=== PATIENT | female | born 1945 | race Caucasian/White ===

== ENCOUNTER 2017-08-13 04:53 | Inpatient (IN) | payer OTHER ==
[2017-08-01 15:01] VITALS: BMI 38.0
--- NOTE | 2017-08-01 15:46 | PAT Medication Instructions ---
Service Date Aug 01, 2017. Current Home Medication List Amitriptyline Hcl (Elavil), 50 MG PO HS Ampicillin (Ampicillin), 2,000 MG PO UD Calcium Carbonate-Cholecalcife (Caltrate 600+D), 1 TAB PO BID Cholecalciferol (Vitamin D3), 1 CAP PO QAM Cyanocobalamin (Vitamin B12 500MCG), 500 MCG PO QAM Esomeprazole Magnesium (Nexium), 40 MG PO QAM Estradiol (Estradiol Transdermal System), 1 PATCH TD WK Misc Natural Products (Turmeric Curcumin), 3,200 MG PO BID Multiple Vitamins W/ Minerals (Ocuvite Adult 50+), 1 TAB PO QAM Naproxen (Aleve), 440 MG PO QAM [Equate Pm], 1,000 MG PO HS [Olmighty 40H], 12.5 MG PO QAM [Prednisone], 0.05 MG PO QAM [Selenium], 400 MG PO QAM Medication Instructions For Your Scheduled Surgery - Continue as directed; avoid surgical site: Estradiol (Estradiol Transdermal System), 1 PATCH TD WK - Hold the following medications 2 weeks prior to surgery: [Selenium], 400 MG PO QAM Misc Natural Products (Turmeric Curcumin), 3,200 MG PO BID - Hold the following medications 7 days prior to surgery per surgeon instructions: Naproxen (Aleve), 440 MG PO QAM - Hold the following medications the morning of surgery: Calcium Carbonate-Cholecalcife (Caltrate 600+D), 1 TAB PO BID Cholecalciferol (Vitamin D3), 1 CAP PO QAM Cyanocobalamin (Vitamin B12 500MCG), 500 MCG PO QAM Multiple Vitamins W/ Minerals (Ocuvite Adult 50+), 1 TAB PO QAM [Olmighty 40H], 12.5 MG PO QAM - Take the following medications the morning of surgery with a sip of water OTHERWISE NOTHING TO EAT OR DRINK AFTER MIDNIGHT: Esomeprazole Magnesium (Nexium), 40 MG PO QAM Tylenol (may take if needed up to 4 hours prior to surgery) [Prednisone], 0.05 MG PO QAM - Take the following medications as scheduled the night before surgery: Amitriptyline Hcl (Elavil), 50 MG PO HS Calcium Carbonate-Cholecalcife (Caltrate 600+D), 1 TAB PO BID Tylenol [Equate Pm], 1,000 MG PO HS If you have any questions please call us at [phone] or [phone] or [phone]
[2017-08-01 16:26] LABS: BASO % 1.1 %; BASO ABS # 0.06 K/uL (0-0.2); EOS % 0.9 %; EOS ABS # 0.05 K/uL (0-0.5); HEMATOCRIT 39.2 % (37-47); IG# 0.02 K/uL (0.00-0.02); LYMPH % 23.2 %; LYMPH ABS # 1.27 K/uL (1.2-3.4); MEAN CELL VOLUME 95.4 fL (80-100); MEAN CORPUSCULAR HEMOGLOBIN 31.6 pg (25-34); MEAN CORPUSCULAR HGB CONC 33.2 g/dl (32-36); MEAN PLATELET VOLUME 9.9 fL (7.4-10.4); MONO % 7.1 %; MONO ABS # 0.39 K/uL (0.11-0.59); NEUT % 67.3 %; NEUT ABS # 3.69 K/uL (1.4-6.5); PLATELET COUNT 362 K/uL (130-400); RED CELL DISTRIBUTION WIDTH CV 13.8 % (11.5-14.5); RED CELL DISTRIBUTION WIDTH SD 47.8 fL (36.4-46.3); WHITE BLOOD COUNT 5.48 K/uL (4.8-10.8)
[2017-08-01 16:38] LABS: ALBUMIN 4.3 gm/dl (3.4-5.0); CALCIUM 9.4 mg/dl (8.5-10.1); CREATININE 0.7 mg/dl (0.60-1.20); POTASSIUM 4.6 mmol/L (3.5-5.1)
[2017-08-01 16:42] LABS: PTT PATIENT 27.8 SECONDS (21.0-31.0)
--- NOTE | 2017-08-01 17:00 | DIAGNOSTIC IMAGING REPORT ---
CHEST PREADMISSION(PA/LAT) HISTORY: 72 years-old Female PAT preoperative exam. No acute chest complaints. COMPARISON: None available TECHNIQUE: Frontal and lateral views of the chest FINDINGS: Cardiomediastinal and hilar silhouettes are within normal limits. Left subclavian pacer device is noted with leads overlying the right atrium and right ventricle region. Atherosclerosis of the aorta. Lungs are mildly hyperinflated. There is no pneumothorax, pleural effusion, focal airspace consolidation or overt pulmonary edema. Haziness within the region of the lingula about the frontal and lateral views is thought to be secondary to composite density artifact from overlying soft tissue. There may also be some subsegmental atelectasis or scarring within left lung base. The bones are grossly intact. Degenerative changes are seen about the spine and shoulders. IMPRESSION: Subsegmental atelectasis or scarring of the left lung base without acute cardiopulmonary process. The above report was generated using voice recognition software. It may contain grammatical, syntax or spelling errors. Electronically signed by: Vernon Levy M.D. 08/01/2017 4:59 PM Dictated Date/Time: 08/01/2017 4:58 PM
[2017-08-02 06:25] LABS: HEMOGLOBIN A1C 5.8 % (4.5-5.6)
--- NOTE | 2017-08-02 15:08 | HISTORY & PHYSICAL EXAMINATION ---
DATE OF ADMISSION: 08/02/2017 CHIEF COMPLAINT: Right hip pain. HISTORY OF PRESENT ILLNESS: Ms. Metz is a 72-year-old female with a 2-year history of right hip pain. The patient rates her pain a 10/10. She has pain with her daily activities. She has limited standing and walking tolerance. Pain is worse with weightbearing. The patient uses a cane to ambulate. She has failed conservative treatment and is scheduled for right hip replacement. PAST MEDICAL HISTORY: Hypertension. She denies heart disease, diabetes or DVT. PAST SURGICAL HISTORY: Pacemaker, hysterectomy, multiple hernia repair, bilateral knee arthroscopy, tonsillectomy and tubal ligation. SOCIAL HISTORY: The patient denies alcohol or tobacco use. She quit smoking in 2006. She lives in a 2-story home. She is and retired. FAMILY HISTORY: Negative for DVT. MEDICATIONS: Caltrate 600 mg plus D, selenium 400 mg daily, vitamin D3 2000 units daily, Aleve p.r.n., Ocuvite, turmeric 500 mg, vitamin B12, prednisone 0.05 mg, estradiol 0.05 mg, omeprazole 40 mg, amitriptyline 50 mg. ALLERGIES: CODEINE CAUSES ITCHING. REVIEW OF SYSTEMS: See HPI. Ten other systems reviewed, all negative. PHYSICAL EXAMINATION: VITAL SIGNS: Height 5 feet 3 inches, weight 220 pounds, BMI is 39. GENERAL: This is a well-developed, well-nourished female who is alert and oriented x3. Mood and affect are appropriate. HEENT: Normocephalic. Mucous membranes are moist and intact. NECK: Supple without lymphadenopathy. HEART: Regular rate and rhythm without murmurs, rubs or gallops. ABDOMEN: Soft and nontender. Bowel sounds are equal and active. EXTREMITIES: No ecchymosis, redness or warmth. Thigh and calf are soft and nontender. Range of motion of the right hip is decreased and reproduces pain in the groin. She is neurovascularly intact with +5/5 strength. X-RAY EXAMINATION: AP and lateral views show joint space narrowing and osteophyte formation of the right hip. PLAN: The patient will be admitted for a right total hip arthroplasty with Dr. Abraham. We will plan on aspirin for DVT prophylaxis. The patient is ongoing use Advantage from physical therapy.
[~2017-08-13] VITALS: Ht 160 cm; Wt 99.8 kg
[2017-08-13] VITALS (10 sets, daily range): BP systolic 122–169; BP diastolic 71–89; PULSE 72–90; TEMP 36.4–36.8; O2SAT 94–99; Ht 160 cm; Wt 99.8 kg
[~2017-08-13 04:53] MED LIST: AMOX500T3 PO; AMT50 PO; CALC-354 PO; CHOL2000 PO; CYAN500T13 PO; DIPH-437 PO; ESTR0.0510 TD; MISCCAP52 PO; MULTCAP94 PO; NAPR1TAB9 PO; NXM/40 PO; PRD/1 PO; SELE200T23 PO; [UNRECOGNIZED DRUG - OTHER] PO
[2017-08-13] MEDS ORDERED: CEFAZOLIN 2000MG IV PUSH 10 ML IV SCH (06:00)
[2017-08-13] MEDS ORDERED: LACTATED RINGER'S 1000ML 1,000 ML IV SCH (06:00)
[2017-08-13] MEDS ORDERED: ROPIVACAINE 5MG/ML 30 ML 150 MG, BUPIVACAINE 0.5% MPF INJ 30 ML, EpINEphrine HCL INJ 0.... INFIL SCH ×8 (06:00)
[2017-08-13] MEDS ORDERED: FAMOTIDINE 20 MG TAB PO SCH (06:00)
[2017-08-13] MEDS ORDERED: DEXAMETHASONE 4 MG TAB PO SCH (06:00)
[2017-08-13] MEDS ORDERED: ACETAMINOPHEN 500 MG TAB PO SCH (06:00)
[2017-08-13] MEDS ORDERED: CeleBREX 200 MG CAP PO SCH (06:00)
[2017-08-13] MEDS ORDERED: METOCLOPRAMIDE HCL 10 MG TAB PO SCH (06:00)
[2017-08-13] MEDS: TRANEXAMIC ACID INJ 1,000 MG in SYRINGE 0 ML IV SCH ×2 (06:00→06:30)
[2017-08-13] MEDS ORDERED: GABAPENTIN 300 MG CAP PO SCH (06:00)
[2017-08-13] MEDS ORDERED: LACTATED RINGER'S 1000ML 500 ML IV ONE (06:00)
[2017-08-13] MEDS ORDERED: LACTATED RINGER'S 1000ML IV SCH (06:00)
[2017-08-13] MEDS ORDERED: PRED-301 PO (06:03)
[2017-08-13] MEDS ORDERED: POVIDONE-IODINE OP SOLN 30 ML BTL ONE (06:37)
[2017-08-13] MEDS ORDERED: ORTHO JOINT ANESTHETIC ONE (06:37)
[2017-08-13] MEDS ORDERED: BACITRACIN 50000 UNIT VIAL ONE (06:37)
[2017-08-13] MEDS ORDERED: BUPIVACAINE 0.5 % 5 MG/1 ML PF 10ML VIAL ONE (06:39)
[2017-08-13] MEDS ORDERED: FENTANYL CITRATE INJ 50 MCG/1 ML 2 ML VIAL ONE (06:43)
[2017-08-13] MEDS ORDERED: MIDAZOLAM HCL 1 MG/ML 2ML VIAL ONE ×2 (06:43→07:05)
[2017-08-13] MEDS ORDERED: FENTANYL CITRATE INJ 50 MCG/1 ML 2 ML VIAL IV PRN (06:45)
[2017-08-13] MEDS ORDERED: EpHEDrine SULFATE INJ 50 MG/ML AMP IV PRN (06:45)
[2017-08-13] MEDS ORDERED: ONDANSETRON INJ 2 MG/ML 2 ML VIAL IV PRN ×2 (06:45→08:30)
[2017-08-13] MEDS ORDERED: ATROPINE SULFATE 0.1 MG/ML 5ML SYR IV PRN (06:45)
--- NOTE | 2017-08-13 07:00 | History & Physical Bridge Note ---
H&P Re-Evaluation Bridge Note: I have examined the patient, reviewed the History & Physical and in the interval since the performance of the History & Physical I have noted the following changes of clinical significance: No changes noted
[2017-08-13] MEDS ORDERED: PROPOFOL IV EMULSION 10 MG/ML 20 ML VIAL IV ONE ×2 (07:37→09:42)
--- NOTE | 2017-08-13 07:55 | [facility] Post Operative Brief Note ---
Immediate Operative Summary Operative Date Aug 13, 2017. Pre-Operative Diagnosis Degenerative Joint Disease Right Hip Post-Operative Diagnosis Degenerative Joint Disease Right Hip Procedure(s) Performed Right Total Hip Arthroplasty--Uncemented Surgeon Dr. Abraham Air Conditioning Installer Surgeon(s) RAQUEL Soliman Estimated Blood Loss 100 ml Findings severe OA Specimens A. Right Femoral Head Disposition Recovery Room / PACU
[2017-08-13] MEDS ORDERED: MAGNESIUM HYDROXIDE SUSP 30 ML UDC PO PRN (08:30)
[2017-08-13] MEDS ORDERED: ALUMINUM/MAGNESIUM/SIMETH (MAALOX MAX) 30 ML UDC PO PRN (08:30)
[2017-08-13] MEDS ORDERED: ZOLPIDEM TARTRATE 5 MG TAB PO PRN (08:30)
[2017-08-13] MEDS ORDERED: MoRPHine SULFATE 2 MG/ML CARP IV PRN (08:30)
[2017-08-13] MEDS ORDERED: METOCLOPRAMIDE HCL INJ 5 MG/ML 2 ML VIAL IV PRN (08:30)
[2017-08-13] MEDS ORDERED: OXYCODONE HCL IR 5 MG TAB (IMMEDIATE RELEASE) PO PRN (08:30)
--- NOTE | 2017-08-13 08:30 | OPERATIVE REPORT ---
DATE OF OPERATION: 08/13/2017 PREOPERATIVE DIAGNOSIS: Osteoarthritis, right hip. POSTOPERATIVE DIAGNOSIS: Osteoarthritis, right hip. PROCEDURE: Right connective total hip arthroplasty. SURGEON: Dr. Abraham. BUSINESS DEVELOPMENT RECRUITER: Facundo Romo PA-C. ANESTHESIa spinhal COMPLICATIONS: None. OPERATION AND FINDINGS: PROCEDURE: Following induction of adequate spinal anesthesia, the patient was placed in left lateral decubitus position and right Juan Alberto-Langenbeck incision was made. Subcutaneous tissue was sharply dissected. Electrocautery used for hemostasis. The fascia was incised throughout the length of the wound and a rascon scissor placed beneath the short external rotators. The pyriformis was tagged with #1 Vicryl. The short external rotators were divided from the posterior aspect of the femur using electrocautery. These were swept posteriorly. A T-capsulotomy incision was made and the hip was dislocated using a combination of flexion, adduction, and internal rotation. Exposure of the femoral neck with old-style Hohmann and a blunt Hohmann was carried out and a femoral rasp was utilized as a guide for making the appropriate level femoral neck cut. This bone fragment was removed and reserved on the back table. Next, attention was turned to the acetabulum where bone hook was used to retract the femur while the offset retractors were placed anterior and posteriorly. A double-angled Hohmann was placed in superior and anterior position exposing the acetabulum nicely. Acetabular labrum as well as posterior capsule elements were removed using a long knife and a long pickup. Fovea centralis was cleared of all soft tissue. Sequential reamings were carried up to a 54 and decision was made to proceed with impaction of a 54 trabecular metal cup. This was impacted and held using a single 35 mm bone screw. The acetabular liner was placed with 15 of elevated posterior wall in the superior and posterior position. Next, attention was turned to the femoral portion of the case where a Bovie and pickup was used to further clear short external rotators from their insertion on the femur. Box osteotome was used to gain access to the femoral canal and the T-handled rasp and a rattail rasp were used to further open and lateral the canal. Sequentially raspings were carried up to a 4 which gave good fit and fill of the proximal femur. A trial reduction was carried out and reduced offset femoral neck component was chosen as the size to be used. A -2.5 x 36 mm ceramic femoral head was impacted into position, +0 head was utilized. The trial reduction was stable in all degrees of rotation with no [id number] impingement. The hip was dislocated. The trial components were removed and the final femoral stem, neck, and femoral head combination were assembled on the back table and impacted into position. Hip was relocated. Range of motion checked once again successful and the wound was irrigated. The pyriformis repaired to the greater trochanter using #1 Vicryl [id number] suture. A Hemovac drain was placed and the fascia was closed using #1 Vicryl, subcutaneous tissue was closed using 0 Dexon, and skin was closed with silvia. Sterile dressing of Adaptic, 4 x 4's, ABDs, and foam tape was applied. The patient tolerated the procedure well. Due to the complex nature of the procedure, the entire surgery was performed with the operational assistance of Facundo Romo PA-C. The endodontic assistant, under direct supervision, was involved in the actual performance of all aspects of the surgical procedure including hemostasis, tissue retraction and incision, instrument management, patient positioning, and wound closure. DISPOSITION: Recovery room, stable. I attest to the content of the Intraoperative Record and any orders documented therein. Any exceptions are noted below. BC
--- NOTE | 2017-08-13 09:14 | DIAGNOSTIC IMAGING REPORT ---
R PELVIS/UNILATERAL HIP 1 VIEW CLINICAL HISTORY: 72 years-old Female presenting with IN PACU - A/P PELVIS and LATERAL HIP INCLUDING ALL OF IMPLANT. TECHNIQUE: Single frontal view the pelvis was obtained. COMPARISON: None. FINDINGS: Total right hip arthroplasty in place. No hardware competition. No fracture. Intra-articular gas and surgical drain in place, expected postoperative appearance. Remaining osseous pelvis within normal limits. IMPRESSION: Expected postsurgical appearance status post total right hip arthroplasty. Electronically signed by: Sevne Estrella M.D. 08/13/2017 9:13 AM Dictated Date/Time: 08/13/2017 9:09 AM
[2017-08-13] MEDS ORDERED: EpHEDrine SULFATE 50MG/5ML SYR ONE (09:42)
[2017-08-13] MEDS ORDERED: PHENYLEPHRINE 100MCG/ML 5ML SYR ONE (09:42)
--- NOTE | 2017-08-13 09:47 | Anesthesiology Progress Note ---
Anesthesia Post Op Note Date & Time Aug 13, 2017 at 09:47 Vital Signs Pain Intensity: 0 Vital Signs Past 12 Hours Date Time Temp Pulse Resp B/P (MAP) Pulse Ox O2 Delivery O2 Flow Rate FiO2 08/13/17 09:43 73 24 96 08/13/17 09:43 72 24 08/13/17 09:41 36.3 73 22 134/68 (84) 96 Nasal Cannula 2 08/13/17 09:41 134/68 08/13/17 09:38 69 14 08/13/17 09:38 69 14 96 08/13/17 09:36 123/68 08/13/17 09:33 69 14 08/13/17 09:33 68 14 97 08/13/17 09:30 121/67 08/13/17 09:28 68 15 97 08/13/17 09:28 68 15 08/13/17 09:27 68 20 08/13/17 09:27 69 20 95 08/13/17 09:26 123/65 08/13/17 09:22 69 15 97 08/13/17 09:22 71 15 08/13/17 09:21 133/76 08/13/17 09:17 69 15 08/13/17 09:17 69 15 97 08/13/17 09:16 127/70 08/13/17 09:12 69 15 99 08/13/17 09:12 68 15 08/13/17 09:11 131/74 08/13/17 09:07 66 17 97 08/13/17 09:07 66 17 08/13/17 09:06 125/75 08/13/17 09:02 66 20 97 08/13/17 09:02 66 20 08/13/17 09:01 124/62 08/13/17 08:57 65 16 98 08/13/17 08:57 64 16 08/13/17 08:56 121/71 08/13/17 08:52 66 20 08/13/17 08:52 65 20 100 08/13/17 08:51 132/67 08/13/17 08:50 66 17 08/13/17 08:50 65 17 100 08/13/17 08:46 129/88 08/13/17 08:45 68 16 99 08/13/17 08:45 68 16 08/13/17 08:41 119/68 08/13/17 08:40 73 18 08/13/17 08:40 72 18 95 08/13/17 08:35 74 19 08/13/17 08:35 73 19 115/53 99 08/13/17 08:35 36.3 75 12 115/53 96 Mask 10 08/13/17 05:43 36.8 87 18 169/89 96 Room Air Notes Mental Status: alert / awake / arousable, participated in evaluation Pt Amnestic to Procedure: Yes Nausea / Vomiting: adequately controlled Pain: adequately controlled Airway Patency, RR, SpO2: stable & adequate BP & HR: stable & adequate Hydration State: stable & adequate Neuraxial Anesthesia: was administered, sensory block is resolving Anesthetic Complications: no major complications apparent
[2017-08-13] MEDS ORDERED: HYDROmorphone INJ 0.5 MG/0.5 ML SYR IV PRN (11:15)
[2017-08-13] MEDS: FERROUS GLUCONATE 324 MG TAB PO SCH ×2 (12:32→17:43)
[2017-08-13] MEDS: CYANOCOBALAMIN 500 MCG TAB (VIT B-12) PO SCH (12:32)
[2017-08-13] MEDS: KETOROLAC TROMETHAMINE 15 MG/ML VIAL IV. SCH ×3 (12:34→23:59)
[2017-08-13] MEDS: CEFAZOLIN IV 2,000 MG in SYRINGE 0 ML IV SCH ×2 (14:40→21:43)
[2017-08-13] MEDS: ACETAMINOPHEN 500 MG TAB PO SCH ×2 (14:41→21:43)
[2017-08-13] MEDS: HYDROmorphone INJ 1 MG/ML SYR IV PRN ×2 (15:37→20:00)
--- NOTE | 2017-08-13 18:50 | NUR ---
ID: PT A&Ox4, all vitals WNL on room air. Pain was a 7/10 and PRN Dilaudid was given. Pt pivoted to the bedside commode with 2 assist and a walker. Tolerated a regular diet. LR infusing in the left hand. Prevena wound vac and a hemovac patent in the right hip.
[2017-08-13] MEDS: D5W AND 1/2NSS + 20MEQ KCL 1,000 ML IV SCH (20:48)
[2017-08-13] MEDS: ASPIRIN 81 MG ECTAB PO SCH (20:48)
[2017-08-13] MEDS: DOCUSATE SODIUM 100 MG CAP PO SCH (20:48)
[2017-08-13] MEDS: AMITRIPTYLINE HCL 50 MG TAB PO SCH (20:48)
[2017-08-14 03:04] VITALS: BP 110/65; PULSE 73; TEMP 36.5; O2SAT 96
[2017-08-14] MEDS: HYDROmorphone INJ 1 MG/ML SYR IV PRN ×4 (03:05→19:40)
[2017-08-14] MEDS: ACETAMINOPHEN 500 MG TAB PO SCH ×3 (05:47→20:59)
[2017-08-14] MEDS: KETOROLAC TROMETHAMINE 15 MG/ML VIAL IV. SCH (05:48)
[2017-08-14] MEDS: D5W AND 1/2NSS + 20MEQ KCL 1,000 ML IV SCH (05:48)
[2017-08-14 06:57] LABS: BASO % 0.5 %; BASO ABS # 0.02 K/uL (0-0.2); EOS % 1.3 %; EOS ABS # 0.05 K/uL (0-0.5); HEMATOCRIT 31.5 % (37-47); HEMOGLOBIN 10.2 g/dL (12.0-16.0); LYMPH ABS # 1.47 K/uL (1.2-3.4); MEAN CELL VOLUME 96.3 fL (80-100); MEAN CORPUSCULAR HEMOGLOBIN 31.2 pg (25-34); MEAN CORPUSCULAR HGB CONC 32.4 g/dl (32-36); MEAN PLATELET VOLUME 9.8 fL (7.4-10.4); MONO % 22.3 %; MONO ABS # 0.84 K/uL (0.11-0.59); NEUT % 36.9 %; NEUT ABS # 1.39 K/uL (1.4-6.5); PLATELET COUNT 277 K/uL (130-400); RED CELL DISTRIBUTION WIDTH CV 13.8 % (11.5-14.5); RED CELL DISTRIBUTION WIDTH SD 48.7 fL (36.4-46.3); WHITE BLOOD COUNT 3.77 K/uL (4.8-10.8)
[2017-08-14 07:29] LABS: CALCIUM 8.5 mg/dl (8.5-10.1); CREATININE 0.66 mg/dl (0.60-1.20); POTASSIUM 4.5 mmol/L (3.5-5.1)
[2017-08-14] MEDS ORDERED: DEXAMETHASONE INJ 10 MG in SYRINGE 0 ML IV ONE (07:30)
[2017-08-14] MEDS: OLMESARTAN MEDOXOMIL 40 MG TAB PO SCH (07:33)
[2017-08-14] MEDS: HYDROCHLOROTHIAZIDE 25 MG TAB PO SCH (07:33)
[2017-08-14] MEDS: CYANOCOBALAMIN 500 MCG TAB (VIT B-12) PO SCH (07:33)
[2017-08-14] MEDS: FERROUS GLUCONATE 324 MG TAB PO SCH ×3 (07:33→17:42)
[2017-08-14] MEDS: DOCUSATE SODIUM 100 MG CAP PO SCH ×2 (07:33→20:57)
[2017-08-14] MEDS: PANTOprazole SOD 40 MG TAB PO SCH (07:33)
[2017-08-14] MEDS: ASPIRIN 81 MG ECTAB PO SCH ×2 (07:33→20:58)
[2017-08-14] MEDS: MULTIVITAMIN TAB PO SCH (07:34)
[2017-08-14 07:49] VITALS: BP 134/84; PULSE 84; TEMP 36.6; O2SAT 93
--- NOTE | 2017-08-14 10:51 | Orthopedic Progress Note ---
Orthopedic Progress Note Date of Service Aug 14, 2017. Subjective Post OP Day: 1 Reports: feeling well, Denies: chest pain, SOB, nausea / vomiting, light headedness, calf pain Objective calves soft nontender, N/V intact (+FOOT DROP), hip located, capillary refill less than 2 sec., dressing C/D/I (PREVENA), A&O x3, toes mobile, hemovac drainage (225/75CC PER SHIFT) Date Time Temp Pulse Resp B/P (MAP) Pulse Ox O2 Delivery O2 Flow Rate FiO2 08/14/17 07:49 36.6 84 16 134/84 (101) 93 Room Air 08/14/17 07:45 Room Air 08/14/17 03:04 36.5 73 16 110/65 (80) 96 Room Air 08/14/17 00:10 Room Air 08/13/17 22:48 36.6 90 19 126/71 (89) 94 Room Air 08/13/17 18:47 36.7 90 18 122/74 (90) 95 Room Air 08/13/17 15:30 Room Air 08/13/17 14:59 36.6 72 18 139/79 (99) 95 Nasal Cannula 2.0 08/13/17 13:11 36.7 82 22 138/77 (97) 97 Nasal Cannula 2.0 08/13/17 12:00 75 16 130/76 (94) 97 Nasal Cannula 2.0 08/13/17 11:24 99 Nasal Cannula 2.0 08/13/17 11:20 36.4 77 24 138/76 (96) 99 Nasal Cannula 2.0 Laboratory Results 24 Hours: Test 08/14/17 06:27 White Blood Count 3.77 K/uL Red Blood Count 3.27 M/uL Hemoglobin 10.2 g/dL Hematocrit 31.5 % Mean Corpuscular Volume 96.3 fL Mean Corpuscular Hemoglobin 31.2 pg Mean Corpuscular Hemoglobin Concent 32.4 g/dl Platelet Count 277 K/uL Mean Platelet Volume 9.8 fL Neutrophils (%) (Auto) 36.9 % Lymphocytes (%) (Auto) 39.0 % Monocytes (%) (Auto) 22.3 % Eosinophils (%) (Auto) 1.3 % Basophils (%) (Auto) 0.5 % Neutrophils # (Auto) 1.39 K/uL Lymphocytes # (Auto) 1.47 K/uL Monocytes # (Auto) 0.84 K/uL Eosinophils # (Auto) 0.05 K/uL Basophils # (Auto) 0.02 K/uL Assessment & Plan Assessment: POD#1 SP RIGHT SCAR FOOT DROP- Likely from local injection, will monitor closely. Plan: PT/OT DVT proph- ASA 81mg bid Pain management- Myrna, TYlenol DC planning- DC with Sunday
--- NOTE | 2017-08-14 11:08 | Discharge Instructions ---
Discharge Instructions Date of Service Aug 14, 2017. Admission Reason for Admission: Right Hip Osteoarthritis Discharge Discharge Diagnosis / Problem: SP RIGHT SCAR Discharge Goals Goal(s): Decrease discomfort, Improve function, Increase independence Activity Recommendations Activity Limitations: per Instructions/Follow-up section . Instructions / Follow-Up Instructions / Follow-Up ACTIVITY RECOMMENDATIONS: SELF CARE INSTRUCTIONS AFTER TOTAL HIP REPLACEMENT Until the incision and soft tissues around your hip have healed, there is a possibility that the hip prosthesis could dislocate. A. Observe the following precautions to prevent dislocation: 1. Don't bend your hip greater than 90 degrees. 2. Avoid crossing your legs or ankles while standing or lying. 3. Sit with your feet placed 6 inches apart. 4. When sitting, keep your knees below your hips. Sit on a firm surface, avoid deep, soft chairs and couches. Use an elevated toilet seat in the bathroom. 5. Don't bend over at the waist. Use a long handled shoehorn and a sock aid to help you put on your shoes and socks. A cleaner and dyer can help you peanut picker objects that are too high or too low to reach. 6. Keep car riding to a minimum for at least one month after surgery. B. Your balance may be shaky for a while. Use crutches or a walker until directed by your doctor. C. Use hand rails when walking on stairs. D. Wear low heeled shoes with non-slip soles. E. Be sure that your floors are free of things that could trip you - throw rugs , electrical cords, small objects. Avoid wet and waxed floors, especially with crutches and canes. F. Try to walk several times a day with rest periods between. G. Continue with all the exercises taught to you in the hospital. Again, make walking a part of your daily routine. SPECIAL CARE INSTRUCTIONS: VERY IMPORTANT TO READ AND REVIEW A. You may still be at risk for phlebitis and blood clots. 1. Wear surgical stockings (JAIDA hose) for 2 weeks after surgery to improve circulation and reduce swelling. 2. Take Aspirin 81mg twice daily for 4 weeks or as directed by your doctor. This is your blood thinner. 3. High risk patients may be prescribed a stronger blood thinner if necessary. 4. If you are on Coumadin normally, your family doctor/grain miller helper should monitor your blood work. Expect a phone call the day of or the day after bloodwork is drawn to adjust your dosage. B. You must take antibiotics before having dental work, bladder, bowel and other surgery. Your doctor will provide you with a permanent card to carry describing precautions. C. Call [facility] if you have a fever, redness or swelling around the incision, cloudy drainage from incision, or sudden increase in pain in your hip, not relieved by your regular pain medication. D. Please call the office at if you have any concerns or questions about your operation or recovery. * YOU MAY SHOWER, NO TUB BATHS UNTIL CLEARED BY YOUR DOCTOR. * WEAR JAIDA HOSE 20 HOURS PER DAY FOR 2 WEEKS. * YOU SHOULD USE A WALKER OR CRUTCHES FOR 2-4 WEEKS. THIS WILL HELP PREVENT STRAIN ON YOUR HIP MUSCLE AND ALLOW IT TO HEAL PROPERLY. YOU MAY WEAN TO A CANE TOLERATED. * MOST PATIENTS WILL HAVE HOME NURSING FOR THERAPY. IF YOU DECIDE TO DO OUTPATIENT PHYSICAL THERAPY, PLEASE SCHEDULE THIS 3 TIMES PER WEEK. Prevena- This is a large suction dressing covering your incision. This will help pull any excess drainage from the wound and allow your incision to heal properly. You may shower with this if you can keep the unit outside of the shower. If any bleeding or leakage is noted please call your doctor's office. This will remain on your incision for 7 days and then should be removed. This can be done yourself or by the home nursing staff if applicable. The entire unit is disposable once removed. Once removed, keep incision clean and dry. If redness or drainage is noted, please call your surgeon. ONCE REMOVED YOU WILL SEE A ZIPLINE CLOSURE. THIS IS IN PLACE OF ERAN. DO NOT REMOVE. THIS CAN BE COVERED WITH A LIGHT DRESSING TO PREVENT CATCHING. THIS WILL BE REMOVED AT YOUR 2 WEEK POST OP VISIT. FOLLOW UP VISIT: If appointment is not already scheduled: Please call [facility] to make a follow-up appointment for 2 weeks after your surgery at . Current Hospital Diet Patient's current hospital diet: Regular Diet Discharge Diet Recommended Diet: Regular Diet Procedures Procedures Performed: Right Total Hip Arthroplasty--Uncemented Pending Studies Studies pending at discharge: no Laboratory Results Hemoglobin A1c Test 08/01/17 15:59 Range/Units Estimated Average Glucose 120 mg/dl Hemoglobin A1c 5.8 H 4.5-5.6 % Medical Emergencies . Who to Call and When: Medical Emergencies: If at any time you feel your situation is an emergency, please call 911 immediately. . Non-Emergent Contact Non-Emergency issues call your: Surgeon . "Provider Documentation" section prepared by Rochelle Wilson. . VTE Core Measure Inpt VTE Proph given/why not?: Other Anticoagulation, T.E.D. Stockings, SCD's [place] Drug Monitoring Program Search Results: patient reviewed within database, no issues identified
[2017-08-14 11:15] VITALS: BP 146/78; PULSE 87; TEMP 36.6; O2SAT 95
--- NOTE | 2017-08-14 11:46 | NUR ---
Case Management: Met with pt at bedside. Pt states she lives with her in a large [facility] home with multiple levels and steps. She has a bathroom on every level of the home. Her bedroom is on the second floor. States she has two steps to get up in her bed. Pt reports she is independent with ADLs. She uses a cane in the mornings. She has a standard walker. Pt plans to return home with home health services. Choices offered and she requests referral to [facility]. Referral faxed by Reservation Agent. Pt is requesting that Ivette from [facility] does not come to her home. I spoke with Soni at [facility] and made her aware of pt's request. No other discharge needs identified at this time. Case Management to follow.
[2017-08-14 15:31] VITALS: BP 114/72; PULSE 64; TEMP 36.6; O2SAT 93
--- NOTE | 2017-08-14 18:01 | Hospitalist Progress Note ---
Hospitalist Progress Note Date of Service Aug 14, 2017. Subjective Pt evaluation today including: conversation w/ patient, chart review (review of outside Cardiology records) Doing well, having some right groin pain, was OOB and ambulating, no N/V, wily po , no CP or SOB. All Other Systems: Reviewed and Negative Objective Vital Signs Date Time Temp Pulse Resp B/P (MAP) Pulse Ox O2 Delivery O2 Flow Rate FiO2 08/14/17 15:31 36.6 64 18 114/72 (86) 93 Room Air 08/14/17 11:15 36.6 87 18 146/78 (100) 95 Room Air 08/14/17 07:49 36.6 84 16 134/84 (101) 93 Room Air 08/14/17 07:45 Room Air 08/14/17 03:04 36.5 73 16 110/65 (80) 96 Room Air 08/14/17 00:10 Room Air 08/13/17 22:48 36.6 90 19 126/71 (89) 94 Room Air 08/13/17 18:47 36.7 90 18 122/74 (90) 95 Room Air Physical Exam General Appearance: WD/WN, no apparent distress Eyes: normal inspection, sclerae normal ENT: hearing grossly normal Neck: trachea midline Respiratory/Chest: lungs clear, normal breath sounds, no respiratory distress, no accessory muscle use Cardiovascular: regular rate, rhythm, no edema, no gallop, + systolic murmur (2 /6 ANSHU at LLSB and apex) Abdomen: normal bowel sounds, non tender, soft Extremities: no pedal edema, no calf tenderness, + pertinent finding (rt hip with dressing c/d/i, Hemovac in place) Neurologic/Psychiatric: alert, normal mood/affect, oriented x 3 Skin: normal color, warm/dry, no rash Laboratory Results Last 24 Hours Test 08/14/17 06:27 White Blood Count 3.77 K/uL Red Blood Count 3.27 M/uL Hemoglobin 10.2 g/dL Hematocrit 31.5 % Mean Corpuscular Volume 96.3 fL Mean Corpuscular Hemoglobin 31.2 pg Mean Corpuscular Hemoglobin Concent 32.4 g/dl Platelet Count 277 K/uL Mean Platelet Volume 9.8 fL Neutrophils (%) (Auto) 36.9 % Lymphocytes (%) (Auto) 39.0 % Monocytes (%) (Auto) 22.3 % Eosinophils (%) (Auto) 1.3 % Basophils (%) (Auto) 0.5 % Neutrophils # (Auto) 1.39 K/uL Lymphocytes # (Auto) 1.47 K/uL Monocytes # (Auto) 0.84 K/uL Eosinophils # (Auto) 0.05 K/uL Basophils # (Auto) 0.02 K/uL RDW Standard Deviation 48.7 fL RDW Coefficient of Variation 13.8 % Immature Granulocyte % (Auto) 0.0 % Immature Granulocyte # (Auto) 0.00 K/uL Sodium Level 137 mmol/L Potassium Level 4.5 mmol/L Chloride Level 104 mmol/L Carbon Dioxide Level 25 mmol/L Anion Gap 8.0 mmol/L Blood Urea Nitrogen 24 mg/dl Creatinine 0.66 mg/dl Est Creatinine Clear Calc Drug Dose 89.3 ml/min Estimated GFR () 103.7 Estimated GFR (Non- 89.5 BUN/Creatinine Ratio 36.4 Random Glucose 101 mg/dl Calcium Level 8.5 mg/dl Assessment and Plan Pt is a 72 yo female with a h/o complete heart block s/p PPM, mitral regurgitation, HTN, obesity, FM on chronic prednisone, here s/p Right Total Hip Arthroplasty. Being consulted for medical management Right hip SCAR- DVT proph ASA 81mg po bid PT/OT and plan for dc to home with either HH or outpt PT Pain control as per Ortho Hypertension-stable here -continue olmesartan and HCTZ H/o heart block s/p PPM, Mitral [id number] current issues, seen recently by Cardiology and pacer functioning properly Fibromyalgia Patient will continue with prednisone and amitriptyline Patient is also on an NSAID as an outpatient. It appears patient has not tried Cymbalta, which may be useful for the patient. 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 -hold while here Proph-ASA bid Dispo- to home tomorrow
--- NOTE | 2017-08-14 18:09 | NUR ---
ID: a/o x4. pain tolerable at this time. oob minimal assist and walker. tolerating regular diet. VIT. SL. microfoam dressing with hemovac intact. Prevena wound vac with no drainage in canister. d/c plan home with home health
[2017-08-14] MEDS: CALCIUM 600MG + VIT D 400 IU TAB PO SCH (20:58)
[2017-08-14] MEDS: CeleBREX 200 MG CAP PO SCH (20:58)
[2017-08-14] MEDS: AMITRIPTYLINE HCL 50 MG TAB PO SCH (20:58)
[2017-08-14 23:44] VITALS: BP 125/73; PULSE 80; TEMP 36.5; O2SAT 91
--- NOTE | 2017-08-15 00:40 | NUR ---
A: Hemovac d/c'ed - patient tolerated well. 4x4 with medipore applied to opening. Prevena wound vac dressing intact.
[2017-08-15] MEDS: ACETAMINOPHEN 500 MG TAB PO SCH ×3 (05:46→21:25)
[2017-08-15 07:13] VITALS: BP 132/68; PULSE 66; TEMP 36.5; O2SAT 90
--- NOTE | 2017-08-15 07:17 | Orthopedic Progress Note ---
Orthopedic Progress Note Date of Service Aug 15, 2017. Subjective Post OP Day: 2 Reports: complaints (Pt with continued foot drop right ankle/foot) Objective calves soft nontender, dressing C/D/I (Prevena in place) Pt still with minimal active dorsiflexion right ankle Date Time Temp Pulse Resp B/P (MAP) Pulse Ox O2 Delivery O2 Flow Rate FiO2 08/14/17 23:44 36.5 80 16 125/73 (90) 91 Room Air 08/14/17 19:30 Room Air 08/14/17 15:31 36.6 64 18 114/72 (86) 93 Room Air 08/14/17 11:15 36.6 87 18 146/78 (100) 95 Room Air 08/14/17 07:49 36.6 84 16 134/84 (101) 93 Room Air 08/14/17 07:45 Room Air Laboratory Results 24 Hours: Test 08/15/17 04:44 Assessment & Plan Assessment: POD#2 SP RIGHT SCAR, continued foot drop Plan: PT/OT DVT proph- ASA 81mg bid Pain management- DC planning- monitor foot drop today, consider AFO if no improvement, DC with HH likely tomorrow
[2017-08-15 07:40] VITALS: BP 140/78; TEMP 36.3; O2SAT 93
--- NOTE | 2017-08-15 07:45 | NUR ---
A note: Call placed to Dr. Bean regarding pts. critical ANC of 0.29. Pt. placed on neutropenic precautions. Return call from Dr. Bean and charge nurse EDDIE Ribeiro gave her the information.
[2017-08-15] MEDS: CALCIUM 600MG + VIT D 400 IU TAB PO SCH ×2 (08:32→20:50)
[2017-08-15] MEDS: PANTOprazole SOD 40 MG TAB PO SCH (08:32)
[2017-08-15] MEDS: CeleBREX 200 MG CAP PO SCH ×2 (08:32→20:51)
[2017-08-15] MEDS: MULTIVITAMIN TAB PO SCH (08:32)
[2017-08-15] MEDS: OLMESARTAN MEDOXOMIL 40 MG TAB PO SCH (08:32)
[2017-08-15 08:33] LABS: HEMATOCRIT 31.9 % (37-47); HEMOGLOBIN 10.3 g/dL (12.0-16.0); MEAN CELL VOLUME 96.7 fL (80-100); MEAN CORPUSCULAR HEMOGLOBIN 31.2 pg (25-34); MEAN CORPUSCULAR HGB CONC 32.3 g/dl (32-36); PLATELET COUNT 263 K/uL (130-400); RED CELL DISTRIBUTION WIDTH CV 13.7 % (11.5-14.5); RED CELL DISTRIBUTION WIDTH SD 48.4 fL (36.4-46.3); WHITE BLOOD COUNT 3.04 K/uL (4.8-10.8)
[2017-08-15] MEDS: ASPIRIN 81 MG ECTAB PO SCH ×2 (08:33→20:51)
[2017-08-15] MEDS: DOCUSATE SODIUM 100 MG CAP PO SCH ×2 (08:33→20:51)
[2017-08-15] MEDS: CYANOCOBALAMIN 500 MCG TAB (VIT B-12) PO SCH (08:33)
[2017-08-15] MEDS: FERROUS GLUCONATE 324 MG TAB PO SCH ×3 (08:33→17:45)
[2017-08-15] MEDS: HYDROCHLOROTHIAZIDE 25 MG TAB PO SCH (08:34)
[2017-08-15] MEDS: CHOLECALCIFEROL 1000 INTER.UNIT TAB PO SCH (08:34)
[2017-08-15] MEDS: CEROVITE ADV FORMULA TAB PO SCH (08:34)
[2017-08-15 08:36] LABS: BASO % 0.7 %; BASO ABS # 0.02 K/uL (0-0.2); EOS ABS # 0.09 K/uL (0-0.5); IG# 0.01 K/uL (0.00-0.02); LYMPH % 57.6 %; LYMPH ABS # 1.75 K/uL (1.2-3.4); MONO % 28.9 %; MONO ABS # 0.88 K/uL (0.11-0.59); NEUT % 9.5 %; NEUT ABS # 0.29 K/uL (1.4-6.5)
[2017-08-15 08:37] LABS: CALCIUM 9.1 mg/dl (8.5-10.1); CREATININE 0.57 mg/dl (0.60-1.20); POTASSIUM 3.9 mmol/L (3.5-5.1)
[2017-08-15] MEDS: TAPENTADOL HCL 50 MG TAB PO PRN ×2 (08:42→23:27)
[2017-08-15 08:51] VITALS: O2SAT 93
[2017-08-15 11:59] VITALS: BP_SYST 141; BP_SYST 142; BP_DIAS 66; PULSE 87; TEMP 36.6; O2SAT 99
[2017-08-15 15:05] VITALS: BP 110/75; PULSE 86; TEMP 36.4; O2SAT 93
--- NOTE | 2017-08-15 15:42 | Hospitalist Progress Note ---
Hospitalist Progress Note Date of Service Aug 15, 2017. Subjective Pt evaluation today including: conversation w/ patient Pt feeling well except has persistent right foot drop. Had critical neutropenia today at ANC 290. She denies any previous problems with her immune system or low WBC counts. No CP or SOB, no cough. Is passing flatus but no BM yet All Other Systems: Reviewed and Negative Objective Vital Signs Date Time Temp Pulse Resp B/P (MAP) Pulse Ox O2 Delivery O2 Flow Rate FiO2 08/15/17 15:05 36.4 86 16 110/75 (87) 93 Room Air 08/15/17 11:59 36.6 87 20 142/66 (91) 99 Room Air 08/15/17 08:51 93 Room Air 08/15/17 07:40 36.3 20 140/78 (98) 93 Room Air 08/15/17 07:25 Room Air 08/15/17 07:13 36.5 66 16 132/68 (89) 90 Room Air 08/14/17 23:44 36.5 80 16 125/73 (90) 91 Room Air 08/14/17 19:30 Room Air Physical Exam General Appearance: WD/WN, no apparent distress Eyes: normal inspection, sclerae normal ENT: hearing grossly normal Neck: trachea midline Respiratory/Chest: lungs clear, normal breath sounds, no respiratory distress, no accessory muscle use Cardiovascular: regular rate, rhythm, no edema, no gallop, + systolic murmur (2 /6 ANSHU at LLSB) Abdomen: normal bowel sounds, non tender, soft Extremities: non-tender, no pedal edema, no calf tenderness Neurologic/Psychiatric: alert, + motor weakness (0/5 strength with right ankle dorsiflexion and right great toe dorsiflexion, otherwise full strength throughout LEs bilat), + sensory deficit (loss of light touch on dorsal right foot near 1st web space) Skin: normal color, warm/dry, no rash, + pertinent finding (left anterior chest wall with palpable pacemaker) Laboratory Results Last 24 Hours Test 08/15/17 07:29 White Blood Count 3.04 K/uL Red Blood Count 3.30 M/uL Hemoglobin 10.3 g/dL Hematocrit 31.9 % Mean Corpuscular Volume 96.7 fL Mean Corpuscular Hemoglobin 31.2 pg Mean Corpuscular Hemoglobin Concent 32.3 g/dl Platelet Count 263 K/uL Mean Platelet Volume 10.0 fL Neutrophils (%) (Auto) 9.5 % Lymphocytes (%) (Auto) 57.6 % Monocytes (%) (Auto) 28.9 % Eosinophils (%) (Auto) 3.0 % Basophils (%) (Auto) 0.7 % Neutrophils # (Auto) 0.29 K/uL Lymphocytes # (Auto) 1.75 K/uL Monocytes # (Auto) 0.88 K/uL Eosinophils # (Auto) 0.09 K/uL Basophils # (Auto) 0.02 K/uL RDW Standard Deviation 48.4 fL RDW Coefficient of Variation 13.7 % Immature Granulocyte % (Auto) 0.3 % Immature Granulocyte # (Auto) 0.01 K/uL Sodium Level 141 mmol/L Potassium Level 3.9 mmol/L Chloride Level 107 mmol/L Carbon Dioxide Level 29 mmol/L Anion Gap 6.0 mmol/L Blood Urea Nitrogen 22 mg/dl Creatinine 0.57 mg/dl Est Creatinine Clear Calc Drug Dose 103.4 ml/min Estimated GFR () 108.9 Estimated GFR (Non- 93.9 BUN/Creatinine Ratio 38.7 Random Glucose 82 mg/dl Calcium Level 9.1 mg/dl Assessment and Plan Pt is a 72 yo female with a h/o complete heart block s/p PPM, mitral regurgitation, HTN, obesity, FM on chronic prednisone, here s/p Right Total Hip Arthroplasty. Being consulted for medical management Right hip SCAR/Right foot drop- foot drop could be as a result of nerve block or surgery. -observe but may need AFO brace prior to discharge if foot drop not resolving DVT proph ASA 81mg po bid PT/OT and plan for dc to home with either HH or outpt PT tomorrow Pain control as per Ortho Neutropenia-other cell lines acceptable, hgb low but secondary to blood loss from surgery, platelets normal. Neutropenia could be result of suppression as side effect of Cefazolin perhaps. No h/o neutropenia. -no longer receiving antibiotics now -follow CBC -continue neutropenic precautions -if worsening or other cell lines drop further, will consult Hematology Hypertension-stable here -continue olmesartan and HCTZ H/o heart block s/p PPM, Mitral [id number] current issues, seen recently by Cardiology and pacer functioning properly Fibromyalgia Patient will continue with prednisone and amitriptyline Patient is also on an NSAID as an outpatient. It appears patient has not tried Cymbalta, which may be useful for the patient. 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 -hold while here Proph-ASA bid Dispo- to home tomorrow if neutropenia resolving
--- NOTE | 2017-08-15 17:23 | NUR ---
ID: PT A&Ox4, all vitals WNL on room air. Pain was a 3/10 and denied need for pain meds. Pt ambulates to the bathroom with 1 assist and a walker. Tolerating a regular diet. Saline lock in the left hand. Prevena wound vac and 4x4 with opsite to old drain site intact. Encouraging hand washing due to neutropenic precautions.
[2017-08-15] MEDS: AMITRIPTYLINE HCL 50 MG TAB PO SCH (20:52)
[2017-08-15 23:33] VITALS: BP 127/83; PULSE 80; TEMP 36.4; O2SAT 98
[2017-08-16] MEDS: ACETAMINOPHEN 500 MG TAB PO SCH (06:12)
[2017-08-16] MEDS: TAPENTADOL HCL 50 MG TAB PO PRN (06:15)
[2017-08-16 07:29] VITALS: BP 122/79; PULSE 95; TEMP 36.3; O2SAT 93
--- NOTE | 2017-08-16 07:57 | Orthopedic Progress Note ---
Orthopedic Progress Note Date of Service Aug 16, 2017. Subjective Post OP Day: 3 Reports: complaints (Pt still with significant footdrop) Objective calves soft nontender (Pt with minimal active dorsiflexion of ankle), dressing C /D/I Date Time Temp Pulse Resp B/P (MAP) Pulse Ox O2 Delivery O2 Flow Rate FiO2 08/16/17 07:29 36.3 95 17 122/79 (93) 93 Room Air 08/16/17 07:05 Room Air 08/15/17 23:33 36.4 80 17 127/83 (98) 98 Room Air 08/15/17 23:20 Room Air 08/15/17 16:11 Room Air 08/15/17 15:05 36.4 86 16 110/75 (87) 93 Room Air 08/15/17 11:59 36.6 87 20 142/66 (91) 99 Room Air 08/15/17 08:51 93 Room Air Assessment & Plan Assessment: POD#3 SP RIGHT SCAR, continued foot drop Plan: PT/OT DVT proph- ASA 81mg bid Pain management- DC planning- consult Subhash Serra for AFO, d/c likely once fitted
--- NOTE | 2017-08-16 08:11 | NUR ---
Orthotics-Irma @ [facility] was contacted for AFO brace. She stated that the brace will be here this afternoon.
[2017-08-16] MEDS: FERROUS GLUCONATE 324 MG TAB PO SCH ×2 (08:30→13:07)
[2017-08-16] MEDS: MULTIVITAMIN TAB PO SCH (08:33)
[2017-08-16] MEDS: CEROVITE ADV FORMULA TAB PO SCH (08:52)
[2017-08-16] MEDS: CHOLECALCIFEROL 1000 INTER.UNIT TAB PO SCH (08:53)
[2017-08-16] MEDS: PANTOprazole SOD 40 MG TAB PO SCH (08:54)
[2017-08-16] MEDS: CeleBREX 200 MG CAP PO SCH (08:54)
[2017-08-16] MEDS: HYDROCHLOROTHIAZIDE 25 MG TAB PO SCH (08:54)
[2017-08-16] MEDS: DOCUSATE SODIUM 100 MG CAP PO SCH (08:54)
[2017-08-16] MEDS: ASPIRIN 81 MG ECTAB PO SCH (08:54)
[2017-08-16] MEDS: OLMESARTAN MEDOXOMIL 40 MG TAB PO SCH (08:54)
[2017-08-16] MEDS: CYANOCOBALAMIN 500 MCG TAB (VIT B-12) PO SCH (08:54)
[2017-08-16] MEDS: CALCIUM 600MG + VIT D 400 IU TAB PO SCH (08:54)
[2017-08-16 08:59] VITALS: BP 102/67; PULSE 70
[2017-08-16 09:48] LABS: HEMOGLOBIN 10.7 g/dL (12.0-16.0); MEAN CELL VOLUME 96.8 fL (80-100); MEAN CORPUSCULAR HEMOGLOBIN 31.4 pg (25-34); MEAN CORPUSCULAR HGB CONC 32.4 g/dl (32-36); MEAN PLATELET VOLUME 10.1 fL (7.4-10.4); PLATELET COUNT 261 K/uL (130-400); RED CELL DISTRIBUTION WIDTH CV 13.9 % (11.5-14.5); RED CELL DISTRIBUTION WIDTH SD 49.6 fL (36.4-46.3); WHITE BLOOD COUNT 3.25 K/uL (4.8-10.8)
--- NOTE | 2017-08-16 10:47 | NUR ---
Pt. seen in Hospital. Female. RX: Right AFO, Ankle foot orthosis. DX: Right foot drop. Pt. fit with OTS AFO right. Pt. did not ambulate at this time because she did not have any shoes that lace up. She only brought slippers. Pt. to be seen as needed.
--- NOTE | 2017-08-16 11:16 | Hospitalist Progress Note ---
Hospitalist Progress Note Date of Service Aug 16, 2017. Subjective Pt evaluation today including: conversation w/ patient, lab review, conversation w/ economics consultant (Hematology), review of inpatient medication list Pt feels well except rt foot drop. No Headache, no sore throat, no fevers, no cough, no CP or SOB, no abd pain. ANC is up to 680 today. All Other Systems: Reviewed and Negative Objective Vital Signs Date Time Temp Pulse Resp B/P (MAP) Pulse Ox O2 Delivery O2 Flow Rate FiO2 08/16/17 08:59 70 102/67 (79) 08/16/17 07:29 36.3 95 17 122/79 (93) 93 Room Air 08/16/17 07:05 Room Air 08/15/17 23:33 36.4 80 17 127/83 (98) 98 Room Air 08/15/17 23:20 Room Air 08/15/17 16:11 Room Air 08/15/17 15:05 36.4 86 16 110/75 (87) 93 Room Air 08/15/17 11:59 36.6 87 20 142/66 (91) 99 Room Air Physical Exam General Appearance: WD/WN, no apparent distress Eyes: normal inspection, sclerae normal ENT: hearing grossly normal, pharynx normal Neck: supple, trachea midline Respiratory/Chest: lungs clear, normal breath sounds, no respiratory distress, no accessory muscle use Cardiovascular: regular rate, rhythm, no edema, no gallop, no murmur Abdomen: normal bowel sounds, non tender, soft, no organomegaly Extremities: no pedal edema, no calf tenderness, + pertinent finding (rt hip with dressing and Prevena c/d/i, right foot drop persists, 0/5 motor strength in rt ankle dorsiflexion) Neurologic/Psychiatric: alert, normal mood/affect, oriented x 3 Skin: normal color, warm/dry, no rash Laboratory Results Last 24 Hours Test 08/16/17 08:52 White Blood Count 3.25 K/uL Red Blood Count 3.41 M/uL Hemoglobin 10.7 g/dL Hematocrit 33.0 % Mean Corpuscular Volume 96.8 fL Mean Corpuscular Hemoglobin 31.4 pg Mean Corpuscular Hemoglobin Concent 32.4 g/dl Platelet Count 261 K/uL Mean Platelet Volume 10.1 fL RDW Standard Deviation 49.6 fL RDW Coefficient of Variation 13.9 % Neutrophils % (Manual) 20.9 % Lymphocytes % (Manual) 43.5 % Variant Lymphocytes % (manual) 13.9 % Monocytes % (Manual) 16.5 % Eosinophils % (Manual) 2.6 % Basophils % (Manual) 2.6 % Neutrophils # (Manual) 0.68 K/uL Total Absolute Neutrophils 0.68 K/uL Lymphocytes # (Manual) 1.41 K/uL Absolute Variant Lymphocytes 0.45 K/uL Total Absolute Lymphocytes 1.87 K/uL Monocytes # (Manual) 0.54 K/uL Eosinophils # (Manual) 0.08 K/uL Basophils # (Manual) 0.08 K/uL Large Platelets 1+ Assessment and Plan Pt is a 72 yo female with a h/o complete heart block s/p PPM, mitral regurgitation, HTN, obesity, FM on chronic prednisone, here s/p Right Total Hip Arthroplasty. Being consulted for medical management Right hip SCAR/Right foot drop- foot drop could be as a result of nerve block or surgery. Foot drop persists today received AFO brace given to pt today DVT proph ASA 81mg po bid PT/OT and plan for dc to home today Pain control as per Ortho -f/u with Ortho as planned in 3 weeks Neutropenia-other cell lines acceptable, hgb low but secondary to blood loss from surgery, platelets normal. Neutropenia could be result of suppression as side effect of Cefazolin perhaps. No h/o neutropenia. ANC improved today from 290--> 680, improving I discussed the case with rn admission [facility], Dr. Oliva. Pt has no evidence of infection, no fevers. -no longer receiving antibiotics now -follow CBC once weekly after discharge, starting tomorrow 08/17, can be drawn by home health or pt says she can go to her PCP's office lab -continue neutropenic precautions at home, avoid sick people -Dr. Oliva will see her in office on 09/04 at 2 PM when she returns to [facility] for her Ortho f/u visit, and he will be cc'd her CBC results once weekly in the meantime. Hypertension-stable here -continue olmesartan and HCTZ H/o heart block s/p PPM, Mitral [id number] current issues, seen recently by Cardiology and pacer functioning properly Fibromyalgia Patient will continue with prednisone and amitriptyline Patient is also on an NSAID as an outpatient. It appears patient has not tried Cymbalta, which may be useful for the patient. 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 -hold while here Proph-ASA bid Dispo- stable for dc to home today
[2017-08-16 11:20] VITALS: BP 102/67; PULSE 70; TEMP 36.3; O2SAT 93
[2017-08-16] MEDS ORDERED: CLB200 PO (11:38)
[2017-08-16] MEDS ORDERED: ACET-24 PO (11:38)
[2017-08-16] MEDS ORDERED: NCY50 PO (11:38)
[2017-08-16] MEDS ORDERED: ASPI-320 PO (11:38)
[2017-08-16] MEDS ORDERED: ONDA8TAB12 PO (11:38)
--- NOTE | 2017-08-29 08:44 | DISCHARGE SUMMARY ---
CHIEF COMPLAINT: Right hip pain. Please see complete history and physical examination. HOSPITAL COURSE: The patient underwent right total hip arthroplasty without complication. She tolerated the procedure well and was discharged to recovery room in stable condition. Her postoperative course was marked by a persistent foot drop on the operative side. This did not resolve at the time of discharge and an AFO was ordered and fitted by the orthotics department. Otherwise, the patient's postoperative pain was reasonably well controlled with a combination of spinal anesthesia, intraoperative joint injection, IV, and oral pain medications. She was started on aspirin for DVT prophylaxis. She also utilized JAIDA stockings and SCDs for additional prophylaxis. Her H&H was stable and did not require transfusion. A medical consult was asked for to assist in her postoperative medical management. Her surgical drain was discontinued by postoperative day 2, her surgical dressing will remain in place for approximately 7 days postoperative. She tolerated postoperative physical therapy reasonably well where she was ambulating and transferring appropriately. She did have some difficulty in ambulating due to the foot drop. She was discharged home on postoperative day #3. She will continue her physical therapy at home. She will continue her aspirin for DVT prophylaxis and follow up in our office in approximately 10-14 days for initial postop evaluation.
== END 2017-08-16 14:05 | disposition home health service (06) | DRG 470 ==
LOC: C.ACU 04:53 → C.3E 07:00 → ENRESERV 09:07
PROC: 0SR90JA Replacement of Right Hip Joint with Synthetic Substitute, Uncemented, Open Approach (ICD-10-PCS; principal; 2017-08-13 07:00)
DX: M16.11 Unilateral primary osteoarthritis, right hip (principal); M21.371 Foot drop, right foot; D70.2 Other drug-induced agranulocytosis; T36.1X5A Adverse effect of cephalosporins and other beta-lactam antibiotics, initial encounter; I10 Essential (primary) hypertension; M79.7 Fibromyalgia; E66.9 Obesity, unspecified; Z79.899 Other long term (current) drug therapy; Z79.52 Long term (current) use of systemic steroids; Z68.39 Body mass index [BMI] 39.0-39.9, adult; Z95.0 Presence of cardiac pacemaker; Z90.710 Acquired absence of both cervix and uterus; Z87.891 Personal history of nicotine dependence